=== PATIENT | male | born 1975 | race Caucasian/White ===

== ENCOUNTER 2017-02-13 11:06 | Inpatient (IN) | payer OTHER ==
[~2017-02-13] VITALS: Ht 175.3 cm; Wt 105.4 kg
[~2017-02-13 11:06] MED LIST: CIPR500T2 PO; GUAI100S6 PO; MONT10TA2 PO; NAPR500 PO; Z.0.NO CURRENT MEDS
[2017-02-13 11:10] VITALS: BP 138/80; PULSE 70; RESP 24; TEMP 97.5; O2SAT 100
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
[2017-02-13] MEDS ORDERED: SODIUM CHLOR 0.9% 1000 ML INJ 1,000 ML IV SCH (12:14)
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
[2017-02-13] MEDS ORDERED: MORPHINE SULFATE 4 MG/ML INJ IV ONE (12:15)
[2017-02-13] MEDS ORDERED: SODIUM CHLORIDE 0.9% FLUSH 10 ML FLUSH IVF PRN (12:15)
[2017-02-13] MEDS ORDERED: ONDANSETRON HCL 4 MG/2 ML VIAL IVP ONE (12:15)
[2017-02-13 12:30] VITALS: BP 129/80; PULSE 59; RESP 20; O2SAT 98
[2017-02-13] MEDS ORDERED: SUMA100T2 PO (12:30)
[2017-02-13] MEDS ORDERED: DEPA250T2 PO (12:30)
[2017-02-13] MEDS ORDERED: ZYRT10CA PO (12:30)
[2017-02-13 12:57] LABS: BASOPHIL # 0.1 TH/MM3 (0-0.2); BASOPHIL % 0.3 % (0.0-2.0); EOSINOPHIL # 0.4 TH/MM3 (0-0.4); EOSINOPHIL % 1.9 % (0.0-4.0); HEMATOCRIT 45.6 % (39.0-51.0); HEMO FLAGS DIFF FINAL; LYMPH % 6.4 % (9.0-44.0); LYMPHOCYTE # 1.5 TH/MM3 (1.0-4.8); MEAN CELL VOLUME 84.1 FL (80.0-100.0); MEAN CORPUSCULAR HEMOGLOBIN 28.9 PG (27.0-34.0); MEAN CORPUSCULAR HGB CONC 34.4 % (32.0-36.0); MONO % 6.8 % (0.0-8.0); NEUT % 84.6 % (16.0-70.0); PLATELET COUNT 254 TH/MM3 (150-450); RED BLOOD COUNT 5.42 MIL/MM3 (4.50-5.90); RED CELL DISTRIBUTION WIDTH 13.7 % (11.6-17.2); WHITE BLOOD COUNT 23.7 TH/MM3 (4.0-11.0)
[2017-02-13] MEDS ORDERED: MORPHINE SULFATE 4 MG/ML INJ IV PUSH ONE (13:15)
[2017-02-13] MEDS ORDERED: KETOROLAC TROMETHAMINE 30 MG/ML (IVP) VIAL IV PUSH ONE (13:15)
[2017-02-13 13:18] LABS: POTASSIUM 3.9 MEQ/L (3.5-5.1)
[2017-02-13 13:45] LABS: APTT (PATIENT) 23.8 SEC (24.3-30.1); PROTHROMBIN TIME - PATIENT 10.8 SEC (9.8-11.6)
[2017-02-13] MEDS ORDERED: IOHEXOL 350 MG/ML 10 ML VIAL (for RAD DIAG) IV ONE (13:57)
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
[2017-02-13 15:45] VITALS: BP 109/62; PULSE 59; RESP 18; O2SAT 100
[2017-02-13] MEDS ORDERED: NALOXONE HCL 0.4 MG/ML AMP IV PRN (16:00)
[2017-02-13] MEDS ORDERED: SODIUM CHLORIDE 0.9% FLUSH 10 ML FLUSH IV FLUSH PRN (16:00)
[2017-02-13] MEDS ORDERED: ONDANSETRON HCL 4 MG/2 ML VIAL IV PRN (16:00)
[2017-02-13] MEDS ORDERED: Post-op Orders (for Pharmacy) MISC XX ONE (16:00)
[2017-02-13] MEDS ORDERED: SUMAtriptan SUCCINATE 25 MG TAB PO PRN (16:15)
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
[2017-02-13 17:00] VITALS: BP 151/79; PULSE 55; RESP 18; TEMP 96.9; O2SAT 100
[2017-02-13] MEDS: SODIUM CHLOR 0.9% 1000 ML INJ 1,000 ML IV SCH (17:00)
[2017-02-13] MEDS: PANTOPRAZOLE SOD 40 MG DELAYED RELEASE TAB PO SCH (17:16)
[2017-02-13] MEDS: MORPHINE SULFATE 4 MG/ML INJ IV PRN (17:16)
[2017-02-13] MEDS: DIVALPROEX SODIUM DELAYED RELEASE 250 MG TAB PO SCH (20:07)
[2017-02-13] MEDS: SODIUM CHLORIDE 0.9% FLUSH 10 ML FLUSH IV FLUSH SCH (20:07)
[2017-02-13] MEDS: oxyCODONE/ACETAMINOPHEN 5 MG/325 MG TAB PO PRN (20:09)
[2017-02-13 20:15] VITALS: BP 138/75; PULSE 69; RESP 18; TEMP 96.8; O2SAT 98
[2017-02-14] VITALS (9 sets, daily range): BP systolic 108–126; BP diastolic 59–66; PULSE 67–86; RESP 16–21; TEMP 97.1–97.9; O2SAT 96–100
[2017-02-14] MEDS: oxyCODONE/ACETAMINOPHEN 5 MG/325 MG TAB PO PRN ×4 (01:59→21:29)
[2017-02-14 07:17] LABS: AUTOMATED NEUTROPHIL # 7.3 TH/MM3 (1.8-7.7); BASOPHIL # 0.1 TH/MM3 (0-0.2); BASOPHIL % 0.6 % (0.0-2.0); EOSINOPHIL # 0.9 TH/MM3 (0-0.4); EOSINOPHIL % 7.7 % (0.0-4.0); HEMO FLAGS DIFF FINAL; LYMPH % 17.3 % (9.0-44.0); LYMPHOCYTE # 1.9 TH/MM3 (1.0-4.8); MEAN CELL VOLUME 85.3 FL (80.0-100.0); MEAN CORPUSCULAR HEMOGLOBIN 28.9 PG (27.0-34.0); MEAN CORPUSCULAR HGB CONC 33.9 % (32.0-36.0); MONO % 9.5 % (0.0-8.0); NEUT % 64.9 % (16.0-70.0); PLATELET COUNT 182 TH/MM3 (150-450); RED BLOOD COUNT 4.68 MIL/MM3 (4.50-5.90); RED CELL DISTRIBUTION WIDTH 14.2 % (11.6-17.2); WHITE BLOOD COUNT 11.2 TH/MM3 (4.0-11.0)
[2017-02-14] MEDS ORDERED: MILKSUS PO (07:36)
[2017-02-14] MEDS ORDERED: SENN1TAB PO (07:36)
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
[2017-02-14] MEDS: DIVALPROEX SODIUM DELAYED RELEASE 250 MG TAB PO SCH ×2 (09:45→20:13)
[2017-02-14] MEDS: DOCUSATE SODIUM 50 MG/SENNA 8.6 MG TAB PO SCH ×2 (09:46→20:13)
[2017-02-14] MEDS: SODIUM CHLORIDE 0.9% FLUSH 10 ML FLUSH IV FLUSH SCH ×2 (09:46→20:13)
[2017-02-14] MEDS: LIDOCAINE HCL 5% PATCH T-DERMAL SCH (09:46)
[2017-02-14] MEDS: METHOCARBAMOL 500 MG TAB PO SCH ×3 (09:50→22:59)
[2017-02-14] MEDS: SODIUM CHLOR 0.9% 1000 ML INJ 1,000 ML IV SCH ×2 (09:51→23:52)
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
[2017-02-14] MEDS: KETOROLAC TROMETHAMINE 30 MG/ML (IVP) VIAL IV PUSH SCH ×3 (12:25→22:59)
[2017-02-14] MEDS: PANTOPRAZOLE SOD 40 MG DELAYED RELEASE TAB PO SCH (16:52)
[2017-02-14] MEDS: MORPHINE SULFATE 4 MG/ML INJ IV PRN (20:12)
[2017-02-14] MEDS: MAGNESIUM HYDROXIDE SUSP 30 ML CUP PO SCH (20:13)
[2017-02-14] MEDS: MELATONIN 5 MG TAB PO PRN (21:33)
[2017-02-15] VITALS (7 sets, daily range): BP systolic 110–131; BP diastolic 66–81; PULSE 56–84; RESP 16–20; TEMP 97–98.4; O2SAT 96–100
[2017-02-15] MEDS: oxyCODONE/ACETAMINOPHEN 5 MG/325 MG TAB PO PRN ×5 (03:45→21:14)
--- NOTE | 2017-02-15 05:16 | RADRPT ---
EXAM DATE/TIME: 02/15/2017 04:26 [facility] COMPARISON: CT THORAX W CONTRAST, February 13, 2017, 13:55. CHEST PA & LAT, February 14, 2017, 8:04. INDICATIONS : Evaluate for pneumothorax. MEDICAL HISTORY : Rib fracture, left. Pneumothorax, left. SURGICAL HISTORY : ENCOUNTER: Subsequent ACUITY: 3 days PAIN SCORE: Non-responsive. LOCATION: Bilateral chest FINDINGS: Portable upright expiratory view of the chest demonstrates a normal-sized cardiac silhouette. There i s a small left pneumothorax that is stable compared to the prior study. There are no signs of tension . There is atelectasis at the bases likely related to expiratory technique. Left rib fractures are ag ain appreciated. CONCLUSION: Stable small left pneumothorax. Eliecer Cerrato MD on February 15, 2017 at 5:13 Board Certified Radiologist. This report was verified electronically.
[2017-02-15] MEDS: METHOCARBAMOL 500 MG TAB PO SCH ×3 (05:41→21:13)
[2017-02-15] MEDS: KETOROLAC TROMETHAMINE 30 MG/ML (IVP) VIAL IV PUSH SCH ×3 (05:41→17:43)
[2017-02-15 05:54] LABS: AUTOMATED NEUTROPHIL # 5.6 TH/MM3 (1.8-7.7); BASOPHIL % 0.5 % (0.0-2.0); EOSINOPHIL # 0.7 TH/MM3 (0-0.4); EOSINOPHIL % 7.9 % (0.0-4.0); HEMATOCRIT 36.8 % (39.0-51.0); HEMO FLAGS DIFF FINAL; LYMPH % 17.8 % (9.0-44.0); LYMPHOCYTE # 1.6 TH/MM3 (1.0-4.8); MEAN CELL VOLUME 84.7 FL (80.0-100.0); MEAN CORPUSCULAR HEMOGLOBIN 28.7 PG (27.0-34.0); MEAN CORPUSCULAR HGB CONC 33.8 % (32.0-36.0); MONO % 12.1 % (0.0-8.0); NEUT % 61.7 % (16.0-70.0); PLATELET COUNT 145 TH/MM3 (150-450); RED BLOOD COUNT 4.35 MIL/MM3 (4.50-5.90); RED CELL DISTRIBUTION WIDTH 13.8 % (11.6-17.2); WHITE BLOOD COUNT 9.1 TH/MM3 (4.0-11.0)
[2017-02-15 06:31] LABS: ALKALINE PHOSPHATASE 56 U/L (45-117); ALT (GPT) 23 U/L (12-78); ANION GAP 4 MEQ/L (5-15); AST (GOT) 13 U/L (15-37); BICARBONATE 31.7 MEQ/L (21.0-32.0); BLOOD UREA NITROGEN 20 MG/DL (7-18); CHLORIDE 106 MEQ/L (98-107); GLOMERULAR FILTRATION RATE 65 ML/MIN (>89); MAGNESIUM 2.1 MG/DL (1.5-2.5); POTASSIUM 4.4 MEQ/L (3.5-5.1); SODIUM (NA) 142 MEQ/L (136-145); TOTAL BILIRUBIN ADULT 0.9 MG/DL (0.2-1.0)
[2017-02-15] MEDS: DIVALPROEX SODIUM DELAYED RELEASE 250 MG TAB PO SCH ×2 (08:51→21:13)
[2017-02-15] MEDS: DOCUSATE SODIUM 50 MG/SENNA 8.6 MG TAB PO SCH ×2 (08:52→21:13)
[2017-02-15] MEDS: LIDOCAINE HCL 5% PATCH T-DERMAL SCH (08:54)
[2017-02-15] MEDS: SODIUM CHLORIDE 0.9% FLUSH 10 ML FLUSH IV FLUSH SCH ×2 (08:54→21:14)
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
[2017-02-15] MEDS: PANTOPRAZOLE SOD 40 MG DELAYED RELEASE TAB PO SCH (13:56)
--- NOTE | 2017-02-15 17:40 | RADRPT ---
EXAM DATE/TIME: 02/15/2017 15:38 [facility] COMPARISON: No previous studies available for comparison. INDICATIONS : Left wrist pain and swelling. MEDICAL HISTORY : None. SURGICAL HISTORY : Tonsillectomy. ENCOUNTER: Initial ACUITY: 1 day PAIN SCORE: 5/10 LOCATION: Left wrist. TECHNIQUE: Multiplanar multisequence MRI examination of the wrist was performed without contrast. FINDINGS: There is some edema in the soft tissues predominantly on the dorsal aspect of the wrist. History is w rist joint fluid. No significant bone edema is seen at the wrist to suggest recent fracture. No acute tendon abnormalities are identified. CONCLUSION: 1. No acute bony abnormalities identified at the wrist. Trace joint fluid. Subcutaneous edema predomi nantly dorsally. Tyler Holguin MD on February 15, 2017 at 17:31 Board Certified Radiologist. This report was verified electronically.
[2017-02-15] MEDS: SODIUM CHLOR 0.9% 1000 ML INJ 1,000 ML IV SCH (17:43)
[2017-02-15] MEDS: MAGNESIUM HYDROXIDE SUSP 30 ML CUP PO SCH (21:14)
[2017-02-16 00:01] VITALS: BP 139/75; PULSE 63; RESP 16; TEMP 97.6; O2SAT 97
[2017-02-16] MEDS: KETOROLAC TROMETHAMINE 30 MG/ML (IVP) VIAL IV PUSH SCH ×4 (00:28→18:25)
[2017-02-16] MEDS: oxyCODONE/ACETAMINOPHEN 5 MG/325 MG TAB PO PRN ×3 (00:30→09:39)
[2017-02-16] MEDS: MELATONIN 5 MG TAB PO PRN (00:30)
[2017-02-16] MEDS: METHOCARBAMOL 500 MG TAB PO SCH ×3 (05:40→21:22)
--- NOTE | 2017-02-16 06:38 | RADRPT ---
EXAM DATE/TIME: 02/16/2017 06:10 [facility] COMPARISON: CHEST SINGLE AP, February 15, 2017, 4:26. INDICATIONS : Pain left chest and ribs, evaluate for pneumothorax MEDICAL HISTORY : rib fractures SURGICAL HISTORY : None. ENCOUNTER: Subsequent ACUITY: 1 week PAIN SCORE: 3/10 LOCATION: Left chest FINDINGS: A single portable frontal view the chest shows a small left apical pneumothorax which is unchanged. L eft-sided rib fractures again noted. Bibasilar atelectasis. The right is improved. The left is unchan ged. Heart is normal in size. Scoliotic curvature of the thoracic spine. CONCLUSION: Unchanged tiny left apical pneumothorax. Bibasilar atelectasis. Junior Logan Jr., MD on February 16, 2017 at 6:35 Board Certified Radiologist. This report was verified electronically.
--- NOTE | 2017-02-16 07:37 | RADRPT ---
EXAM DATE/TIME: 02/15/2017 15:38 [facility] COMPARISON: HAND LEFT COMPLETE ([id number]), February 13, 2017, 11:47. INDICATIONS : Pain in hand and wrist. MEDICAL HISTORY : None. SURGICAL HISTORY : Tonsillectomy. ENCOUNTER: Initial ACUITY: 2 day PAIN SCORE: 5/10 LOCATION: Left hand TECHNIQUE: Multiplanar, multisequence MRI examination was performed without contrast. FINDINGS: The exam is significantly limited due to motion artifact on multiple image sequences. However, there appears to be normal signal within the bony structures. There is nonspecific subcutaneous edema in th e soft tissues along the dorsum of the hand. No loculated fluid collections are demonstrated. Normal signal in the muscle structures and tendons. CONCLUSION: 1. Limited study due to motion artifact 2. Nonspecific subcutaneous edema along the dorsum of the hand. 3. Bony structures, muscles and tendons appear to be grossly intact. Otto Browning MD on February 16, 2017 at 7:32 Board Certified Radiologist. This report was verified electronically.
[2017-02-16 08:00] VITALS: BP 113/69; PULSE 71; RESP 18; TEMP 96.1; O2SAT 97
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
[2017-02-16] MEDS: DOCUSATE SODIUM 50 MG/SENNA 8.6 MG TAB PO SCH ×2 (08:45→21:21)
[2017-02-16] MEDS: LIDOCAINE HCL 5% PATCH T-DERMAL SCH (08:45)
[2017-02-16] MEDS: SODIUM CHLORIDE 0.9% FLUSH 10 ML FLUSH IV FLUSH SCH ×2 (08:49→21:21)
[2017-02-16] MEDS: ENOXAPARIN SODIUM 30 MG/0.3 ML SYRINGE SQ SCH ×2 (08:49→21:21)
[2017-02-16] MEDS: DIVALPROEX SODIUM DELAYED RELEASE 250 MG TAB PO SCH ×2 (09:35→21:21)
[2017-02-16] MEDS: SODIUM CHLOR 0.9% 1000 ML INJ 1,000 ML IV SCH (11:40)
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
[2017-02-16 12:00] VITALS: BP 128/92; PULSE 62; RESP 18; TEMP 96.3; O2SAT 97
[2017-02-16] MEDS ORDERED: PILL SPLITTER OTHER PRN (12:00)
[2017-02-16] MEDS ORDERED: HYDROmorphone HCL PF 1 MG/ML VIAL IV PUSH PRN (12:00)
[2017-02-16] MEDS: LACTULOSE SYRUP 20 GM/30 ML CUP PO SCH (13:15)
[2017-02-16] MEDS: oxyCODONE/ACETAMINOPHEN 7.5 MG/325 MG TAB PO PRN ×2 (14:51→21:22)
[2017-02-16 16:00] VITALS: BP 124/81; PULSE 73; RESP 18; TEMP 96.3; O2SAT 99
[2017-02-16] MEDS: PANTOPRAZOLE SOD 40 MG DELAYED RELEASE TAB PO SCH (18:25)
[2017-02-16 20:00] VITALS: BP 139/79; PULSE 77; RESP 18; TEMP 97; O2SAT 99
[2017-02-16] MEDS: MAGNESIUM HYDROXIDE SUSP 30 ML CUP PO SCH (21:25)
[2017-02-17 00:30] VITALS: BP 127/74; PULSE 63; RESP 16; TEMP 96.9; O2SAT 99
[2017-02-17] MEDS: KETOROLAC TROMETHAMINE 30 MG/ML (IVP) VIAL IV PUSH SCH ×5 (00:30→23:21)
[2017-02-17] MEDS: SODIUM CHLOR 0.9% 1000 ML INJ 1,000 ML IV SCH ×2 (01:54→19:10)
[2017-02-17] MEDS: METHOCARBAMOL 500 MG TAB PO SCH ×3 (05:55→21:07)
[2017-02-17] MEDS: oxyCODONE/ACETAMINOPHEN 7.5 MG/325 MG TAB PO PRN ×3 (05:55→21:07)
--- NOTE | 2017-02-17 06:16 | RADRPT ---
EXAM DATE/TIME: 02/17/2017 05:24 [facility] COMPARISON: CHEST SINGLE AP, February 16, 2017, 6:10. INDICATIONS : Pain left chest and ribs MEDICAL HISTORY : rib fractures SURGICAL HISTORY : None. ENCOUNTER: Subsequent ACUITY: 4 - 6 days PAIN SCORE: 5/10 LOCATION: Left chest FINDINGS: A single portable frontal view of the chest shows a left lower lobe infiltrate. No effusions. Right l halle is clear. Heart is normal in size. Bony structures unremarkable. A small pneumothorax remains on the left. Left-sided rib fractures noted. CONCLUSION: 1. Small left pneumothorax is stable. 2. Left lower lobe infiltrate/atelectasis. Junior Logan Jr., MD on February 17, 2017 at 6:14 Board Certified Radiologist. This report was verified electronically.
[2017-02-17 08:00] VITALS: BP 109/76; PULSE 53; RESP 18; TEMP 96.4; O2SAT 98
[2017-02-17] MEDS: SODIUM CHLORIDE 0.9% FLUSH 10 ML FLUSH IV FLUSH SCH ×2 (09:00→21:07)
[2017-02-17] MEDS: DOCUSATE SODIUM 50 MG/SENNA 8.6 MG TAB PO SCH ×2 (09:30→21:07)
[2017-02-17] MEDS: DIVALPROEX SODIUM DELAYED RELEASE 250 MG TAB PO SCH ×2 (09:31→21:06)
[2017-02-17] MEDS: LIDOCAINE HCL 5% PATCH T-DERMAL SCH (09:36)
[2017-02-17] MEDS: LACTULOSE SYRUP 20 GM/30 ML CUP PO SCH (09:38)
[2017-02-17] MEDS: ENOXAPARIN SODIUM 30 MG/0.3 ML SYRINGE SQ SCH ×2 (09:39→21:06)
[2017-02-17 11:31] VITALS: BP 115/79; PULSE 60; RESP 17; TEMP 96.5; O2SAT 100
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
[2017-02-17] MEDS: BACITRACIN TOP OINT 15 GM TUBE TOP SCH ×2 (14:00→21:06)
[2017-02-17 15:35] VITALS: BP 114/73; PULSE 62; RESP 17; TEMP 97.1; O2SAT 99
[2017-02-17 16:58] VITALS: BP 120/79; PULSE 57; RESP 17; TEMP 96.7; O2SAT 99
[2017-02-17] MEDS: PANTOPRAZOLE SOD 40 MG DELAYED RELEASE TAB PO SCH (18:25)
[2017-02-17 19:54] VITALS: BP 130/76; PULSE 53; RESP 17; TEMP 96.7; O2SAT 100
[2017-02-17] MEDS ORDERED: diphenhydrAMINE HCL 25 MG CAP PO PRN (21:45)
[2017-02-17] MEDS ORDERED: diphenhydrAMINE HCL 50 MG CAP PO PRN (21:45)
[2017-02-18 00:10] VITALS: BP 115/67; PULSE 56; RESP 17; TEMP 96.8; O2SAT 98
[2017-02-18] MEDS: oxyCODONE/ACETAMINOPHEN 7.5 MG/325 MG TAB PO PRN ×3 (05:49→14:05)
[2017-02-18] MEDS: METHOCARBAMOL 500 MG TAB PO SCH ×2 (05:50→14:05)
[2017-02-18] MEDS: KETOROLAC TROMETHAMINE 30 MG/ML (IVP) VIAL IV PUSH SCH (05:50)
--- NOTE | 2017-02-18 07:11 | RADRPT ---
EXAM DATE/TIME: 02/18/2017 06:40 [facility] COMPARISON: CHEST SINGLE AP, February 17, 2017, 5:24. INDICATIONS : Pneumothorax. Chest pain. MEDICAL HISTORY : Rib fractures. SURGICAL HISTORY : None. ENCOUNTER: Subsequent ACUITY: 1 week PAIN SCORE: 3/10 LOCATION: middle chest FINDINGS: Small stable left apical pneumothorax with 1 cm separation. There is some atelectasis in the left lin g base. There is mild atelectasis in the right lung base. Otherwise, the rest lungs are clear. There are no pleural effusions. The heart size is stable. There are stable left-sided rib fractures. CONCLUSION: Small stable left apical pneumothorax with 1 cm separation. No significant change compared to the aydin or exam. Otto Browning MD on February 18, 2017 at 7:08 Board Certified Radiologist. This report was verified electronically.
[2017-02-18 07:24] LABS: AUTOMATED NEUTROPHIL # 4.3 TH/MM3 (1.8-7.7); BASOPHIL % 0.7 % (0.0-2.0); EOSINOPHIL # 0.7 TH/MM3 (0-0.4); EOSINOPHIL % 9.9 % (0.0-4.0); HEMATOCRIT 39.7 % (39.0-51.0); HEMO FLAGS DIFF FINAL; LYMPH % 21.9 % (9.0-44.0); LYMPHOCYTE # 1.6 TH/MM3 (1.0-4.8); MEAN CELL VOLUME 83.3 FL (80.0-100.0); MEAN CORPUSCULAR HEMOGLOBIN 29.4 PG (27.0-34.0); MEAN CORPUSCULAR HGB CONC 35.3 % (32.0-36.0); MONO % 7.8 % (0.0-8.0); NEUT % 59.7 % (16.0-70.0); PLATELET COUNT 203 TH/MM3 (150-450); RED BLOOD COUNT 4.76 MIL/MM3 (4.50-5.90); RED CELL DISTRIBUTION WIDTH 13.6 % (11.6-17.2); WHITE BLOOD COUNT 7.2 TH/MM3 (4.0-11.0)
[2017-02-18 07:49] LABS: ALKALINE PHOSPHATASE 64 U/L (45-117); ALT (GPT) 38 U/L (12-78); ANION GAP 5 MEQ/L (5-15); AST (GOT) 40 U/L (15-37); BICARBONATE 34.6 MEQ/L (21.0-32.0); BLOOD UREA NITROGEN 15 MG/DL (7-18); CHLORIDE 102 MEQ/L (98-107); GLOMERULAR FILTRATION RATE 56 ML/MIN (>89); POTASSIUM 4.5 MEQ/L (3.5-5.1); SODIUM (NA) 142 MEQ/L (136-145); TOTAL BILIRUBIN ADULT 1.1 MG/DL (0.2-1.0)
[2017-02-18 07:55] VITALS: BP 111/71; PULSE 60; RESP 18; TEMP 95.4; O2SAT 96
[2017-02-18] MEDS: DOCUSATE SODIUM 50 MG/SENNA 8.6 MG TAB PO SCH (08:38)
[2017-02-18] MEDS: DIVALPROEX SODIUM DELAYED RELEASE 250 MG TAB PO SCH (08:38)
[2017-02-18] MEDS: LACTULOSE SYRUP 20 GM/30 ML CUP PO SCH (08:39)
[2017-02-18] MEDS: ENOXAPARIN SODIUM 30 MG/0.3 ML SYRINGE SQ SCH (08:42)
[2017-02-18] MEDS: SODIUM CHLORIDE 0.9% FLUSH 10 ML FLUSH IV FLUSH SCH (08:44)
[2017-02-18] MEDS: LIDOCAINE HCL 5% PATCH T-DERMAL SCH (08:45)
[2017-02-18] MEDS: BACITRACIN TOP OINT 15 GM TUBE TOP SCH (09:00)
[2017-02-18] MEDS ORDERED: PERC5TAB12 PO (10:27)
[2017-02-18 11:41] VITALS: BP 119/66; PULSE 52; RESP 18; TEMP 96.2; O2SAT 100
[2017-02-18] MEDS ORDERED: METH500T3 PO (12:10)
[2017-02-18] MEDS: SODIUM CHLOR 0.9% 1000 ML INJ 1,000 ML IV SCH (13:40)
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
[2017-02-18 16:08] VITALS: BP 127/73; PULSE 69; RESP 17; TEMP 95.6; O2SAT 96
== END 2017-02-18 16:44 | disposition home or self-care (01) | DRG 200 ==
LOC: NEPC 11:06 → NEDA 14:58 → N06B 16:40
PROVIDERS: ADMIT Surgery; ATTEND Surgery
DX: S27.0XXA Traumatic pneumothorax, initial encounter (principal); S22.42XA Multiple fractures of ribs, left side, initial encounter for closed fracture; S60.512A Abrasion of left hand, initial encounter; V27.4XXA Motorcycle driver injured in collision with fixed or stationary object in traffic accident, initial encounter; Y92.410 Unspecified street and highway as the place of occurrence of the external cause
CPT/HCPCS: 70450; 71010; 71020; 71260; 72125; 73030; 73130; 73218; 73221; 74177; 80048; 80053; 83735; 85025; 85610; 85730; 86850; 86900; 86901; 94150; 94667; 94668; 96361; 96374; 96375; 96376; J1650; J1885; J2270; J2405; J7030; L0150; Q9967